=== PATIENT | female | born 1945 ===

== ENCOUNTER 2021-03-08 20:13 | Emergency (ER) | payer MEDICARE ==
[~2021-03-08] VITALS: Ht 152.4 cm; Wt 75.0 kg
[~2021-03-08 20:13] MED LIST: ASCO500W4 PO; CARV3.1212 PO; CHOL10003 PO; FERR325T23 PO; LISI-170 PO; MAGN400T9 PO; MULT-843 PO; MYCO500T3 PO; TACR1CAP5 PO
[2021-03-08 20:16] VITALS: BP 159/78
[2021-03-08] MEDS ORDERED: SODIUM CHLORIDE 0.9% 1,000ML IVBOLUS ONE (20:30)
[2021-03-08 21:08] LABS: BASOPHILS % (AUTO) 1 % (0-1); EOSINOPHILS % (AUTO) 2 % (1-7); LYMPHOCYTES % (AUTO) 24 % (22-44); MEAN CORPUSCULAR HEMOGLOBIN 28.5 pg (27.0-34.8); MEAN CORPUSCULAR HGB CONC 33.8 g/dL (32.4-35.8); MONOCYTES % (AUTO) 11 % (2-9); NEUTROPHILS % (AUTO) 62 % (42-75); PLATELET COUNT 274 x10^3/uL (130-400); RED BLOOD COUNT 4.42 x10^6/uL (3.82-5.3); RED CELL DISTRIBUTION WIDTH 14.7 % (9.6-15.2)
[2021-03-08 21:13] LABS: ALBUMIN 2.9 g/dL (3.4-5.0); ANION GAP 6 mmol/L (5-15); CALCIUM 8.9 mg/dL (8.5-10.1); CHLORIDE 99 mmol/L (98-107); CREATININE 0.71 mg/dL (0.55-1.02)
[2021-03-08 21:17] LABS: TROPONIN I < 0.015 ng/mL (0.000-0.045)
== END 2021-03-08 22:04 | disposition home or self-care (01) ==
LOC: ED 21:13
DX: R42 Dizziness and giddiness (principal); E87.1 Hypo-osmolality and hyponatremia; R05 Cough; R07.9 Chest pain, unspecified; R00.2 Palpitations; R00.0 Tachycardia, unspecified; I10 Essential (primary) hypertension; E11.9 Type 2 diabetes mellitus without complications; Z87.891 Personal history of nicotine dependence
CPT/HCPCS: 36415; 71045; 80048; 82040; 83880; 84484; 85025; 93005; 93971; 99285; J7030